=== PATIENT | female | born 1990 | race Caucasian/White ===

== ENCOUNTER 2022-03-27 06:10 | Observation (INO) | payer MEDICAID ==
[~2022-03-27] VITALS: Ht 147.3 cm; Wt 66.2 kg
[2022-03-27] MEDS ORDERED: LACTATED RINGERS 1,000 ML IV SCH ×2 (07:00→08:00)
[2022-03-27] MEDS ORDERED: CITRIC ACID/SODIUM CITRATE SOLN 30ML UDC PO PRN (07:00)
[2022-03-27] MEDS ORDERED: ONDANSETRON HCL 4MG/2ML INJ IV PRN (07:00)
[2022-03-27 08:34] LABS: CLARITY URINE CLEAR (CLEAR); COLOR URINE YELLOW (YELLOW); KETONES URINE NEGATIVE (NEGATIVE); LEUKOCYTE ESTERASE URINE 2+ (NEGATIVE); NITRITE URINE NEGATIVE (NEGATIVE); OCCULT BLOOD URINE TRACE (NEGATIVE); PH URINE 7.5 (4.5-8.0); PROTEIN URINE NEGATIVE (NEGATIVE); SPECIFIC GRAVITY URINE 1.012 (1.005-1.030); UROBILINOGEN URINE 0.2 E.U./dL (0.2-1.0)
[2022-03-27 08:43] LABS: CHLORIDE 106 mEq/L (98-107)
[2022-03-27 09:00] LABS: AMYLASE 66 IU/L (25-115)
[2022-03-29] MEDS ORDERED: PREN-176 PO (01:22)
[2022-03-29] MEDS ORDERED: FERR-71 PO (01:22)
== END 2022-03-27 11:20 | disposition home or self-care (01) ==
LOC: 8 EST LDRP 06:10
PROVIDERS: ADMIT Obstetrics & Gynecology; ATTEND Obstetrics & Gynecology
DX: O26.892 Other specified pregnancy related conditions, second trimester (principal); R10.10 Upper abdominal pain, unspecified; O62.9 Abnormality of forces of labor, unspecified; O21.2 Late vomiting of pregnancy; Z3A.20 20 weeks gestation of pregnancy
CPT/HCPCS: 36415; 59025; 76705; 76805; 80053; 81003; 82150; 83690; G0378; 96360; 96361; 99281

== ENCOUNTER 2022-03-29 01:46 | Emergency (ER) | payer MEDICAID ==
[~2022-03-29] VITALS: Ht 139.7 cm; Wt 67.4 kg
[~2022-03-29 01:46] MED LIST: CITRIC ACID/SODIUM CITRATE SOLN 30ML UDC PO ONE; FERR-71 PO; PREN-176 PO
[2022-03-29 02:23] VITALS: BP 98/53
[2022-03-29 03:33] LABS: BASOPHILS % 0.5 % (0.0-2.0); HEMATOCRIT. 35.2 % (36.0-48.0); HEMOGLOBIN. 12.1 g/dL (12.0-16.0); LYMPHOCYTES % 15.7 % (20.0-50.0); MEAN CORPUSCULAR HEMOGLOBIN 29.7 pg (28.0-32.0); MEAN CORPUSCULAR VOLUME 86.2 fL (81.0-99.0); MONOCYTES % 5.8 % (2.0-8.0); PLATELET 262 x1000/uL (130-400); RED BLOOD CELL COUNT 4.09 mill/uL (4.2-5.4); RED CELL DISTRIBUTION WIDTH 13.8 % (11.6-14.6)
[2022-03-29 03:39] LABS: CHLORIDE 106 mEq/L (98-107)
== END 2022-03-29 06:37 | disposition home or self-care (01) ==
LOC: EDSTATUS 01:46 → ER 01:46
DX: O26.892 Other specified pregnancy related conditions, second trimester (principal); Z3A.20 20 weeks gestation of pregnancy
CPT/HCPCS: 36415; 76705; 80053; 85025; 99281; 99284

== ENCOUNTER 2022-05-08 00:16 | Observation (INO) | payer MEDICAID ==
[~2022-05-08] VITALS: Ht 142.2 cm; Wt 70.3 kg
[~2022-05-08 00:16] MED LIST changes: -CITRIC ACID/SODIUM CITRATE SOLN 30ML UDC PO ONE
[2022-05-08] MEDS ORDERED: FAMO-135 PO (01:00)
[2022-05-08] MEDS ORDERED: CALCIUM (01:01)
[2022-05-08] MEDS ORDERED: ONDANSETRON HCL 4MG/2ML INJ IV PRN (01:15)
[2022-05-08] MEDS ORDERED: CITRIC ACID/SODIUM CITRATE SOLN 30ML UDC PO PRN (01:15)
[2022-05-08] MEDS ORDERED: LACTATED RINGERS 1,000 ML IV ONE (01:15)
== END 2022-05-08 02:20 | disposition home or self-care (01) ==
LOC: 8 EST LDRP 00:16
PROVIDERS: ADMIT Obstetrics & Gynecology; ATTEND Obstetrics & Gynecology
DX: O26.892 Other specified pregnancy related conditions, second trimester (principal); R10.10 Upper abdominal pain, unspecified; R10.13 Epigastric pain; O21.2 Late vomiting of pregnancy; Z3A.26 26 weeks gestation of pregnancy
CPT/HCPCS: 36415; 59025; 80051; 96361; 96374; G0378; J2405; 99281

== ENCOUNTER 2022-06-21 09:43 | Observation (INO) | payer MEDICAID ==
[~2022-06-21] VITALS: Ht 144.8 cm; Wt 72.6 kg
[~2022-06-21 09:43] MED LIST changes: +CALCIUM; +FAMO-135 PO
== END 2022-06-21 15:05 | disposition home or self-care (01) ==
LOC: 8 EST LDRP 09:43
PROVIDERS: ADMIT Obstetrics & Gynecology; ATTEND Obstetrics & Gynecology
DX: O46.93 Antepartum hemorrhage, unspecified, third trimester (principal); O26.893 Other specified pregnancy related conditions, third trimester; N89.8 Other specified noninflammatory disorders of vagina; Z3A.33 33 weeks gestation of pregnancy
CPT/HCPCS: 59025; 76805; 76818; 99281; G0378; G0379